=== PATIENT | female | born 2000 | race Caucasian/White ===

== ENCOUNTER → 2023-08-20 | Outpatient (CLI) | payer OTHER ==
--- NOTE | 2023-08-20 10:11 | USB ---
Reason for Exam: Clinical finding. Indicated Problems: Lump or thickening of the right side (size 5) for 1 Year(s). Patient History: Menarche at age 11. Patient has no children. Premenopausal. Maternal aunt had breast cancer under age 50. Paternal grandmother had breast cancer at or over age 50. Maternal grandfather had other cancer. Last menstrual period: 07/30/2023 Technique: Method: Targeted. Doppler: Color. Patient Position: Supine. Prior Study Comparison: Baseline Ultrasound. No prior studies available for comparison. Findings: The upper inner quadrant of the right breast, the axilla of the right breast and the retroareolar of the right breast were scanned. No solid or cystic masses are identified.. Overall Assessment: Incomplete: need additional imaging evaluation, BI-RAD 0 Management: Diagnostic Mammogram of the right breast. A clinical breast exam by your physician is recommended on an annual basis and results should be correlated with mammographic findings. This exam should not preclude additional follow-up of suspicious palpable abnormalities. Results were given to the patient verbally at the time of exam. Electronically signed and approved by: Debora Gutiérrez M.D. Radiologist
--- NOTE | 2023-08-20 10:23 | MM ---
Reason for Exam: Clinical finding. Baseline mammogram. Patient History: Menarche at age 11. Patient has no children. Premenopausal. Maternal aunt had breast cancer under age 50. Paternal grandmother had breast cancer at or over age 50. Maternal grandfather had other cancer. Last menstrual period: 07/30/2023 Prior Study Comparison: Patient's first Mammogram. Tissue Density: Right: The breasts are extremely dense, which lowers the sensitivity of mammography. Findings: Analyzed By CAD. No suspicious findings. The area of palpable was marked with a BB. No suspicious groups of microcalcifications, spiculated or lobular masses, architectural distortion or other secondary signs of malignancy are mammographically apparent. Overall Assessment: Negative, BI-RAD 1 Management: Screening Mammogram of both breasts at age 38. A negative mammogram report should not preclude additional follow up of suspicious palpable abnormalities. Patient should continue monthly self breast exam. A clinical breast exam by your physician is recommended on an annual basis and results should be correlated with mammographic findings. Note on Jana scores and lifetime risk: 1. A Jana score greater than 3% is considered moderate risk. If this is the case, consider specialist referral to assess eligibility for a risk reducing agent. 2. If overall lifetime risk for the development of breast cancer is 20% or higher, the patient may qualify for future screening with alternating mammogram and breast MRI. Electronically signed and approved by: Angel Borden D.O. Radiologis
== END | disposition home or self-care (01) ==
LOC: RADUSWWP 09:25
PROVIDERS: ATTEND Obstetrics & Gynecology
DX: N64.4 Mastodynia (principal); Z80.3 Family history of malignant neoplasm of breast
CPT/HCPCS: 77065